=== PATIENT | male | born 1985 | race Caucasian/White ===

== ENCOUNTER 2020-01-19 05:47 | Outpatient (CLI) | payer OTHER, SELFPAY ==
[2020-01-19 16:38] LABS: SARS-CoV-2 RNA PCR Negative
== END 2020-01-19 05:48 | disposition home or self-care (01) ==
LOC: ANHCOVIDDT 05:47
PROVIDERS: Visit Provider Orthopaedic Surgery
DX: Z01.818 Encounter for other preprocedural examination (principal); Z11.59 Encounter for screening for other viral diseases
CPT/HCPCS: 87635; C9803; U0003

== ENCOUNTER 2020-01-21 00:54 | Day surgery (SDC) | payer OTHER, SELFPAY ==
[2020-01-18 09:32] VITALS: BMI 31.7
[2020-01-21] VITALS (9 sets, daily range): BP systolic 105–150; BP diastolic 59–103; PULSE 78–91; RESP 10–18; TEMP 36.2–36.3; O2SAT 6–100
[2020-01-21] MEDS: LACTATED RINGERS 1,000 ML 30 ML IV CONT (07:00)
--- NOTE | 2020-01-21 07:10 | SUR.PREOP ---
Pt said during preop phone call that he does not want prescription for narcotics to take home Pt does not have a history of drug abuse. He stated today that he has changed his mind and fears that he will be in a lot of pain and will need the prescription. He said he will get the prescription filled and take as needed
--- NOTE | 2020-01-21 07:28 | PM.HPGS ---
History of Present Illness History of Present Illness Consent: Risks, benefits, and alternatives have been discussed and questions answered. Patient agrees to proceed with procedure. Chief complaint: Lt Knee Patella Chondral Defect Narrative: Perry Roberts is a 34 year old male complains of knee pain. Duration: months Severity: severe Associated signs and symptoms: symptoms reported: (swelling, pain with ambulation) Exacerbating/relieving factors: exacerbating factors: (walking, standing, movement) [facility] Past Medical History Medical History Acute medial meniscus tear of left knee Chondral defect of left patella Surgical History Surgical History History of tonsillectomy (~11/28/18) Social History Social History Smoking status: Current every day smoker Alcohol intake: never Meds Home Medications and Allergies Home Medications Medication Instructions Recorded Confirmed Type meloxicam 7.5 mg tablet 7.5 mg PO BID #60 tablet 12/09/19 01/18/20 Rx Allergies Allergy/AdvReac Type Severity Reaction Status Date / Time No Known Allergies Allergy Unverified 01/18/20 09:31 Vital Signs Vital Signs - 24 hr 01/21/20 06:30 Temperature 36.2 C L Pulse Rate 82 Respiratory Rate 16 Blood Pressure 145/101 H Pulse Oximetry 100 Exam Narrative: Exam Narrative: Appears healthy, in no distress. Normal gait. No deformity. Skin without rash or lesion. Mild effusion. Trace effusion. Reproducible crepitus at about 25? of flexion. This is somewhat controlled with pressure at the inferior patella. Also some popping with flexion and Apley test. No definite pain with hyperflexion. Wiley's test is equivocal. Tender at the posterior medial joint line. Range of motion 0 to 140?. ACL intact. PCL normal. No medial or lateral instability. Hip examination benign. No distal edema. Pedal pulse palpable. Anterior tibialis strength normal. Light touch sensation intact. Contralateral knee shows no deformity. No effusion or erythema. No medial or lateral instability. Extensor mechanism intact. Normal motion. Assessment and Plan Assessment and plan (1) Acute medial meniscus tear of left knee: Qualifiers: Encounter type: initial encounter Qualified Code(s): S83.242A - Other tear of medial meniscus, current injury, left knee, initial encounter Code(s): S83.242A - Other tear of medial meniscus, current injury, left knee, initial encounter Status: Acute Assessment and Plan: Severe pain and mechanical symptoms due to OCD lesion of the patella. Medial meniscus tear may be symptomatic as well. Proceed with arthroscopic medial meniscectomy vs repair. and debridement of OCD lesion. (2) Chondral defect of left patella: Code(s): M23.8X2 - Other internal derangements of left knee Status: Acute
--- NOTE | 2020-01-21 07:36 | WPDANESEPPF ---
Anes - Initial Pre Proc Eval Procedure: Operation Date: 01/21/20 08:15 Proposed Procedures p Left Knee Arthroscopic Debridement of Patellar Chondral Defect, Partial Medial Meniscectomy Versus Repair - Fam Johnson MD Date/Time: 01/21/20 07:36 Surgeon: Fam Johnson MD Pre Op Diagnosis: Lt Knee Patella Chondral Defect Patient Data Age: 34 Gender: M Height: 5 ft 7 in Weight: 98 kg Last Vital Signs Temp 36.2 C L 01/21/20 06:30 Pulse 82 01/21/20 06:30 Resp 16 01/21/20 06:30 BP 145/101 H 01/21/20 06:30 Pulse Ox 100 01/21/20 06:30 Allergies Allergy/AdvReac Type Severity Reaction Status Date / Time No Known Allergies Allergy Unverified 01/18/20 09:31 Home Medications Medication Instructions Recorded Confirmed Type meloxicam 7.5 mg tablet 7.5 mg PO BID #60 tablet 12/09/19 01/18/20 Rx Patient hx anesthesia problems: none Family hx anesthesia problems: none PMFSH Past Medical History Medical History (Updated 01/21/20 @ 07:37 by Fam Manzanares MD) Acute medial meniscus tear of left knee Chondral defect of left patella Obesity REJI (obstructive sleep apnea) Surgical History Surgical History History of tonsillectomy (~11/28/18) Social History Social History Smoking status: Current every day smoker Alcohol intake: never Anes - Eval Final PreProcedure Day of Procedure 01/21/20 07:36 Patient weight: obese Heart: regular rate and rhythm Lungs: clear to auscultation Airway: Mallampati scale class II Neurological: alert and oriented Last oral intake: >/= 8 hours ASA classification: III Emergent: no Anesthetic plan: proceed Anesthesia type and monitoring: general LMA and standard monitoring Informed Consent: The patient's anesthetic plan and its attendant risks and benefits were discussed with the patient/family/POA. Questions were solicited and answers provided to the satisfaction of the patient/family/POA.
[2020-01-21] MEDS: ceFAZolin 2 GM/D5W 50 ML 2 GM/50 ML BAG IVPB (08:43)
[2020-01-21] MEDS: IBUPROFEN IV 800 MG/200 ML 800 MG/200 ML BAG 400 MG IVPB (09:07)
[2020-01-21] MEDS: BUPIVACAINE/EPINEPHRINE 0.5% 30 ML VIAL INFILTRATE (09:07)
[2020-01-21] MEDS: KETOROLAC 30 MG/ML VIAL (*BKC) IV PUSH (09:33)
--- NOTE | 2020-01-21 11:30 | SUR.PHASEII ---
1130- PATIENT NOW REQUESTING PRESCRIPTION FOR PAIN MEDS FOR HOME. OR CALLED. MESSAGE GIVEN TO OR STAFF TO RELAY TO DR. ANTOINE.
--- NOTE | 2020-01-21 12:17 | SUR.PHASEII ---
1205- dr. jones in OR. has not been able to enter prescription. patient states willing to go home and follow-up on prescription w/office.
--- NOTE | 2020-01-22 15:19 | P.OP_ITS ---
Procedure Note - Detailed Date of procedure: 01/21/20 Pre-op diagnosis: Lt Knee Patella Chondral Defect Post-op diagnosis: same Procedure performed: Arthroscopic debridement of patella osteochondral defect with microfracture. Description of procedure: He showed a distal lesion of approximately 7 mm. He had significant patellar tilt, but the lateral restraints were not tight. The defect was cleaned treated with the microfracture awl and drilling. Tibial tubercle osteotomy may be indicated if symptoms persist. Anesthesia: GLMA Surgeon: Fam Johnson MD Estimated blood loss (mL): 5 Complications: No immediate complications Condition: stable Findings: Preoperative antibiotics were given. A general anesthetic was administered. The knee was carefully prepped and draped in usual the usual sterile fashion. The limb was exsanguinated and tourniquet inflated to 300 mmHg. Standard inferomedial and inferolateral arthroscopic portals were established. Inflow was obtained with the saline pump. Inspection revealed no meniscal pathology. The medial meniscus was carefully probed. There was minimal softening through the central portion but no tearing on the inferior or superior leaflet. Shaver was placed at the free edge but the tissue was quite robust and did not show significant degenerative signs, nor readily succumb to the suction and a shaver. The meniscus was thus left alone. The anterior cruciate ligament was intact. The lateral compartment was benign. The articular cartilage appeared normal throughout the knee, except for the inferior pole of patella. There was a soft spot with significant splitting of the cartilage. This corresponded to the MRI findings. The cartilage in this location with easily debrided with the shaver. The defect measured approximately 7 mm. Three microfracture awl points were created. Due to the hardness of the bone and the angle, was elected to drill these initial areas with a K-wire to improve bone marrow stimulation. After the tourniquet was released, good bleeding was seen. The arthroscopic instruments were removed. The wounds were closed with interrupted 4 0 Monocryl suture followed by Steri- Strips. Sterile dressing was applied. The patient was extubated and brought to the recovery room stable condition. There were no complications.
== END 2020-01-21 12:05 | disposition home or self-care (01) ==
PROVIDERS: Visit Provider Orthopaedic Surgery
PROC: (CPT 29870; principal; 2020-01-21 08:15)
DX: M22.8X2 Other disorders of patella, left knee (principal); S83.242A Other tear of medial meniscus, current injury, left knee, initial encounter; X58.XXXA Exposure to other specified factors, initial encounter
CPT/HCPCS: 29879; J0690; J1100; J1741; J1885; J2250; J2405; J2704; J3010; J7120

== ENCOUNTER 2020-01-26 10:43 | Outpatient (RCR) | payer OTHER, SELFPAY ==
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
--- NOTE | 2020-02-02 10:12 | PCPTNOTE ---
patient cancelled appointment today. BALDEMAR
--- NOTE | 2020-06-16 11:04 | PCPTNOTE ---
06/16/20 - patient has been called and reports they would like to end therapy. at this time, their progress towards goals will be taken from the most recent evaluation/note. AnnaTF
== END 2020-02-24 23:59 | disposition home or self-care (01) ==
LOC: CHSPT 10:43
PROVIDERS: Visit Provider Orthopaedic Surgery
DX: Z48.89 Encounter for other specified surgical aftercare (principal)
CPT/HCPCS: 97014; 97016; 97110; 97140; 97161; 97530; G0283

== ENCOUNTER 2020-09-09 23:24 | Emergency (ER) | payer SELFPAY ==
--- NOTE | ~2020-09-09 | CT_ITS ---
EXAMINATION: CT abdomen pelvis w con DATE: 09/10/2020 02:23 INDICATION: Right upper Quad and abdominal pain. Epigastric pain. TECHNIQUE: Computed tomography (CT) of the abdomen and pelvis was performed with 100 mL Omnipaque-350 intravenous contrast. Automated exposure control and iterative reconstruction technique were employe d. The dose-length product was 926.17 mGy-cm. COMPARISON: None FINDINGS: Mild atelectasis in the dependent lungs. I clearly benign 6 mm right lower lobe nodule along the tim r fissure with suggestion of subtle peripheral rim calcification. Heart size is normal. No pericardia l or pleural effusion. Small sliding-type hiatal hernia. Liver, gallbladder, spleen, pancreas, bilate ral adrenal glands and right kidney are normal. 1 cm left renal cyst. There is prominent edematous wa ll thickening of the duodenal bulb and second portion of the duodenum. The more distal small bowel wa lls, appendix and colon are normal. Bladder is normal. No free intraperitoneal gas or fluid. No patho logically enlarged abdominal or pelvic lymphadenopathy. There are few scattered bone islands in the p natalee and proximal right femur. IMPRESSION: 1. Prominent edematous wall thickening of the duodenal bulb and second portion of the duodenum which could be seen with either peptic ulcer disease or infectious duodenitis. No evident bowel perforation . 2. Small sliding-type hiatal hernia. Reviewed, dictated and finalized at location A. NER ANIMAL IMPRESSION: 1. Prominent edematous wall thickening of the duodenal bulb and second portion of the duodenum which could be seen with either peptic ulcer disease or infecti ous duodenitis. No evident bowel perforation. 2. Small sliding-type hiatal hernia.
--- NOTE | ~2020-09-09 | XR_ITS ---
EXAMINATION: XR chest 2V DATE: 09/10/2020 00:27 INDICATION: Epigastric pain worsening with inspiration TECHNIQUE: PA and lateral views of the chest were obtained. COMPARISON: None FINDINGS: The lungs are clear with no focal airspace opacities, pulmonary edema, pleural effusion or pneumothor ax. Borderline heart size which is exaggerated to some degree by a small left paracardial fat pad. Vi sualized bones and soft tissues are unremarkable. IMPRESSION: 1. Borderline heart size. No acute cardiopulmonary disease. Reviewed, dictated and finalized at location A. 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
[2020-09-09 23:26] VITALS: BP 157/111; PULSE 83; RESP 16; TEMP 37.2; O2SAT 99
[2020-09-09 23:49] VITALS: PULSE 81; RESP 10; O2SAT 97
[2020-09-10] VITALS: PULSE 73; RESP 19; O2SAT 96
--- NOTE | 2020-09-10 00:03 | ED.ABDPAIN ---
HPI - Abdominal Pain General Chief Complaint: Abdominal Pain Stated Complaint: Abdominal Pain Time Seen by Provider: 09/10/20 00:03 Source: patient Mode of arrival: ambulatory Limitations: no limitations History of Present Illness HPI narrative: 34-year-old man comes in today complaining of epigastric pain that radiates to his back and which was originally just above his umbilicus when it started 3-4 days ago. The pain was intermittent at 1st but now is constant. Patient states that he has had no black or bloody stools, nausea, vomiting, cough or cold symptoms, shortness of breath, chest pain or known injury. Patient states that eating seems to make the pain better. His father had peptic ulcer disease. MD elicited complaint: abdominal pain Pertinent past history: none Onset (ago): day(s) (4) Pain Consistency: constant Location: epigastric Severity: moderate Radiation: none Migration to: no migration Exacerbating factors: nothing Relieving factors: eating Associated symptoms: denies other symptoms Treatments prior to arrival: NSAIDs Related Data Home Medications Medication Instructions Recorded Confirmed meloxicam [Mobic] 7.5 mg PO PRN 09/09/20 09/09/20 Allergies Allergy/AdvReac Type Severity Reaction Status Date / Time No Known Allergies Allergy Unverified 01/18/20 09:31 Review of Systems Constitutional: Constitutional: Denies chills and Denies fever(s) ENT: Reports dysphagia, Reports nasal congestion and Reports sore throat Cardiovascular: Cardiovascular: Denies chest pain and Denies radiating jaw, neck or arm pain Respiratory: Respiratory: Denies cough, Denies dyspnea and Denies wheezing Gastrointestinal: Gastrointestinal: Reports abdominal pain, Denies diarrhea, Denies nausea and Denies vomiting Genitourinary: Genitourinary: Denies hematuria and Denies dysuria Musculoskeletal: Musculoskeletal: Reports back pain and Denies joint swelling Comments: Knee pain Integumentary/Breasts: Skin/Breast: Denies pruritus, Denies erythema and Denies rash Neurologic: Denies vertigo, Denies dizziness and Denies syncope Endocrine: Endocrine: Denies polydipsia and Denies polyuria Hematologic/Lymphatic: Hematologic/Lymphatic: Denies easy bleeding and Denies easy bruising Allergic/Immunologic: Allergic/Immunologic: Reports lip swelling and Reports tongue swelling PMF Past Medical History Medical History (Updated 09/10/20 @ 02:47 by Matthew Magaña MD) Acute medial meniscus tear of left knee Chondral defect of left patella Obesity REJI (obstructive sleep apnea) Surgical History Surgical History History of knee surgery (~01/21/20) Lt Knee Arthroscopic Debridement of Patella Osteochondral Defect w/Micro Fracture History of tonsillectomy (~11/28/18) Social History Social History Smoking status: Current every day smoker Alcohol intake: never Exam Const: General: healthy appearing and alert Orientation/consciousness: patient oriented x3 Limitations: no limitations Other: [id number] acute distress HENMT: Head: normal to inspection General nose exam: Normal nares present Face and sinus: normal facial exam Mouth: Yes moist mucous membranes Throat: posterior oropharynx normal Eyes: Conjunctivae: conjunctivae normal Pupils: Equal, round and reactive pupils present EOM: EOMs intact bilaterally Resp: Effort & Inspection: normal respiratory effort and not labored Auscultation: clear to auscultation bilaterally, no rales, no rhonchi and no wheezes Cardio: Rate: regular rate Rhythm: regular rhythm Heart sounds: no murmurs GI: GI Palp: Yes Soft to palpation, Yes Tenderness to palpation present (GI) ( epigastric tenderness without guardin), No Guarding due to palpation present (GI), No Rigid due to palpation, No Palpable mass present and No Rebound tenderness present Auscultatio
[2020-09-10 00:15] VITALS: PULSE 74; RESP 17; O2SAT 97
--- NOTE | 2020-09-10 00:43 | PC.NURSE ---
REPORT PROVIDED TO BRITTANY RAYGOZA
[2020-09-10] MEDS: PANTOPRAZOLE SODIUM IV 40 MG VIAL IV PUSH (00:47)
[2020-09-10] MEDS: MAG HYDROX/ALUMINUM HYD/SIMETH 30 ML, PHENobarb/HYOSCY/ATROPINE/SCOP 32.4 MG, LIDOCAINE... PO (01:12)
[2020-09-10 01:31] LABS: Basophils Absolute Auto 0.12 K/mm3 (0.00-0.10); Eosinophils Absolute Auto 0.28 K/mm3 (0.02-0.50); Eosinophils Percent Auto 2.3 % (1.0-6.0); Hematocrit 46.3 % (40.0-54.0); Hemoglobin 15.6 g/dL (14.0-18.0); Immature Granulocyte Absolute 0.06 K/mm3 (0.00-0.00); Immature Granulocyte Percent A 0.5 % (0.0-0.0); Lymphocytes Absolute Auto 5.23 K/mm3 (1.10-4.50); Lymphocytes Percent Auto 43.2 % (18.0-42.0); Mean Corpuscular HGB Conc 33.7 g/dL (32.0-36.0); Mean Corpuscular Hemoglobin 30.8 pg (27.0-31.0); Mean Corpuscular Volume 91.3 fL (78.0-102.0); Mean Platelet Volume 9.1 fl (8.7-11.0); Monocytes Absolute Auto 0.84 K/mm3 (0.10-0.90); Monocytes Percent Auto 6.9 % (2.0-11.0); Neutrophils Absolute Auto 5.6 K/mm3 (1.7-7.2); Neutrophils Percent Auto 46.1 % (50.0-70.0); Platelet Count Result 325 K/mm3 (150-420); Red Blood Count 5.07 M/mm3 (4.70-6.10); Red Cell Distribution Width 12.4 % (11.6-14.4); White Blood Count 12.1 K/mm3 (4.8-10.8)
[2020-09-10 01:33] LABS: Add Urine Microscopic? YES; Appearance Urine Clear (Clear); Bilirubin Urine Negative (Negative); Blood Urine 2+ (Negative); Color Urine Yellow (Yellow); Glucose Urine UA Negative (Negative); Ketones Urine Negative (Negative); Leukocyte Esterase Ur Negative LEU/UL (Negative); Nitrate Urine Negative (Negative); Protein Urine Negative (Negative); Urobilinogen Urine 0.2 mg/dL (0.2-1.0)
[2020-09-10 01:47] LABS: Alanine Aminotransferase 22 U/L (16-63); Albumin Level 3.8 g/dL (3.4-5.0); Alkaline Phosphatase 70 U/L (46-116); Anion Gap 8 mmol/L (8-16); Aspartate Amino Transferase 15 U/L (15-37); Bilirubin,Total 0.4 mg/dL (0.00-1.00); Blood Urea Nitrogen 18 mg/dL (7-18); Calcium 9.2 mg/dL (8.5-10.1); Carbon Dioxide 26 mmol/L (21-32); Chloride 104 mmol/L (98-108); Estimated CRCL calculation 69 ml/min; Estimated Glomerular Filt Rate 53; Glucose 99 mg/dL (70-99); Lipase 166 U/L (73-393); Osmolality Calculated 287 mOsm/kg (285-295); Potassium 3.6 mmol/L (3.5-5.1); Sodium 138 mmol/L (136-145)
[2020-09-10 01:49] LABS: RBC Urine None seen /hpf (0-2)
[2020-09-10 01:49] LABS: Occult Blood N (Negative)
[2020-09-10 01:50] LABS: INR 0.9; Prothrombin Time 10.1 Seconds (9.50-12.10)
[2020-09-10 02:53] VITALS: BP 141/99; PULSE 82; RESP 18; O2SAT 98
== END 2020-09-10 02:59 | disposition home or self-care (01) ==
PROVIDERS: Emergency Provider Emergency Medicine
DX: R10.13 Epigastric pain (principal)
CPT/HCPCS: 36415; 71046; 74177; 80053; 81001; 83690; 85025; 85610; 96374; 99283; 99284; A9270; C9113; Q9965; Q9967

== ENCOUNTER 2021-04-26 11:29 | Emergency (ER) | payer BC, SELFPAY ==
--- NOTE | ~2021-04-26 | XR_ITS ---
LUMBAR SPINE INDICATION: Low back pain TECHNIQUE: 5 views lumbar spine COMPARISON: None FINDINGS: No fracture, subluxation or dislocation. Mild levoscoliosis. No evidence for spondylolysis or spondylolisthesis. Vertebral bodies and disk spaces are preserved. IMPRESSION: 1: No acute abnormality of the lumbar spine identified. Reviewed, dictated and finalized at location A.
--- NOTE | ~2021-04-26 | XR_ITS ---
XR shoulder RT min 2V 04/26/2021 12:37 INDICATION: Right shoulder pain PROCEDURE: 4 views right shoulder COMPARISON: 06/04/2019 FINDINGS: Fracture, dislocation or subluxation is not identified. The soft tissues appear within norm al limits. No foreign bodies are identified. IMPRESSION: 1: NO ACUTE BONE OR JOINT ABNORMALITY IDENTIFIED. Reviewed, dictated and finalized at location A.
[2021-04-26 11:48] VITALS: BP 145/82; PULSE 83; RESP 20; TEMP 37.1; O2SAT 99
--- NOTE | 2021-04-26 12:13 | ED.BACK ---
HPI - Back Pain/Injury General Chief Complaint: Back Pain/Injury Stated Complaint: back pain Source: patient Mode of arrival: ambulatory Limitations: no limitations History of Present Illness HPI Narrative: 35-year-old male presents to urgent care with complaints of lower back pain for the past week. Patient denies injury to his back. Patient does take meloxicam as needed due to chronic knee pains. Patient also reports right shoulder pain and popping for the past 4 to 5 years reports that he now has pain and numbness rating down his right arm. Patient denies decreased range of motion, swelling, erythema or bruising. Patient reports that he did present to the emergency room today due to low back pain but they did not complete x-rays of his back. Patient currently is not have a primary care provider as his recently retired. MD elicited complaint: back pain Onset (ago): week(s) (1) Location: lumbar spine Radiation: none Relieving factors: none Related Data Allergies Allergy/AdvReac Type Severity Reaction Status Date / Time No Known Allergies Allergy Verified 04/26/21 12:02 Review of Systems Constitutional: Constitutional: Denies chills, Denies fatigue, Denies fever(s) and Denies weakness ENT: Denies sore throat Cardiovascular: Cardiovascular: Denies chest pain, Denies rapid heart rate and Denies radiating jaw, neck or arm pain Respiratory: Respiratory: Denies cough, Denies dyspnea and Denies wheezing Gastrointestinal: Gastrointestinal: Denies abdominal pain, Denies diarrhea, Denies nausea and Denies vomiting Musculoskeletal: Musculoskeletal: Reports back pain, Reports arthralgias and Denies muscle cramps Comments: Right shoulder pain and low back pains Integumentary/Breasts: Skin/Breast: Denies rash Neurologic: Denies dizziness [facility] Past Medical History Medical History (Updated 04/26/21 @ 12:50 by Joanie Fierro APRN) Acute medial meniscus tear of left knee Chondral defect of left patella Obesity REJI (obstructive sleep apnea) Surgical History Surgical History History of knee surgery (~01/21/20) Lt Knee Arthroscopic Debridement of Patella Osteochondral Defect w/Micro Fracture History of tonsillectomy (~11/28/18) Social History Social History (Reviewed 04/26/21 @ 12:15 by CARLEY Hooks Smoking status: Current every day smoker Alcohol intake: never Comments At time of signature, I agree with nursing past medical, surgical, social and family history. There is no relevant family history pertinent to the presenting complaint. Exam Const: General: healthy appearing and no acute distress Orientation/consciousness: patient oriented x3 Neck: Neck: normal visual inspection Resp: Effort & Inspection: normal respiratory effort, not labored and not tachypneic Auscultation: clear to auscultation bilaterally Cardio: Rate: regular rate, not bradycardic and not tachycardic Rhythm: regular rhythm Back/Spine/Pelvis: Back: no CVA tenderness Other: Mild pain noted to mid lumbar region upon palpation. There were 2 small areas of swelling noted to left and right mid back. Full range of motion noted to left back. Skin: General skin exam: normal color Neuro: General: patient oriented x3 and moves all extremities Extrem: Other: Clicking sensation noted to right shoulder with range of motion. Full range of motion of right shoulder noted. There is no swelling, bruising or erythema noted. Psych: Affect: normal affect Attitude: cooperative Course Vital Signs Vital signs: Vital Signs Temperature 37.1 C 04/26/21 11:48 Pulse Rate 83 04/26/21 11:48 Respiratory Rate 20 04/26/21 11:48 Blood Pressure 145/82 H 04/26/21 11:48 Pulse Oximetry 99 04/26/21 11:48 Temperature 37.1 C 04/26/21 11:48 Pulse Rate 83 04/26/21 11:48 Respiratory Rate 20 04/26/21 11:48 Blood Pressure 145/82 H 04/26/21 11:48 Pulse Oximetry 99
== END 2021-04-26 12:58 | disposition home or self-care (01) ==
PROVIDERS: Emergency Provider Nurse Practitioner Family
DX: M54.5 Low back pain (principal); G47.33 Obstructive sleep apnea (adult) (pediatric); E66.9 Obesity, unspecified; Z68.31 Body mass index [BMI] 31.0-31.9, adult
CPT/HCPCS: 72110; 73030; 99214; G0463

== ENCOUNTER 2021-05-03 15:01 | Outpatient (CLI) | payer BC, SELFPAY ==
--- NOTE | ~2021-05-03 | XR_ITS ---
XR scapula RT DATE: 05/03/2021 15:14 INDICATION: Right shoulder pain TECHNIQUE: AP and lateral views COMPARISON: None FINDINGS: No fracture or dislocation or bone destruction. Normal alignment at the acromioclavicular a nd glenohumeral joints. IMPRESSION: Negative right scapula Reviewed, dictated and finalized at location A. IMPRESSION: Negative right scapula
[2021-05-03 19:15] LABS: Anion Gap 9 mmol/L (8-16); Blood Urea Nitrogen 20 mg/dL (9-20); Calcium 9.7 mg/dL (8.4-10.2); Carbon Dioxide 23 mmol/L (22-30); Chloride 109 mmol/L (98-107); Estimated Glomerular Filt Rate 53; Glucose 94 mg/dL (65-110); Potassium 4.3 mmol/L (3.4-5.0); Sodium 141 mmol/L (137-145)
== END 2021-05-03 15:02 | disposition home or self-care (01) ==
LOC: ANHBWCLAB 15:03
PROVIDERS: PCP Family Medicine; Visit Provider Family Medicine
DX: N17.9 Acute kidney failure, unspecified (principal); M25.519 Pain in unspecified shoulder
CPT/HCPCS: 36415; 73010; 80048